=== PATIENT | female | born 1995 | race Hispanic/Latino ===

== ENCOUNTER 2020-12-24 12:57 | Emergency (ER) | payer OTHER, SELFPAY ==
[2020-12-24 14:11] LABS: Absolute Lymphocytes (CBC) 2.1 K/uL (0.7-4.9); Basophils % 0.6 % (0-1.3); Hematocrit 39.3 % (36.0-45.0); Lymphocytes % 22.7 % (15.3-44.8); MPV 8.7 fL (7.6-11.3); RBC Red Blood Cell Count 4.83 M/uL (3.86-4.86)
[2020-12-24] MEDS ORDERED: ACETAMINOPHEN 500 MG TAB ONE (14:17)
[2020-12-24 14:47] LABS: BUN Blood Urea Nitrogen 6 mg/dL (7-18); Bicarbonate 24 mmol/L (21-32); Glucose Level 76 mg/dL (74-106); HCG, Quantitative 32775 mIU/mL (1-3); Potassium 3.6 mmol/L (3.5-5.1); Sodium Level 140 mmol/L (136-145)
--- NOTE | 2020-12-24 14:49 | RAD REPORT ---
EXAM DESCRIPTION: RAD - Wrist Left 3 View - 12/24/2020 2:24 pm CLINICAL HISTORY: PAIN Pain COMPARISON: No comparisons FINDINGS: No fracture or dislocation seen. No foreign body or other soft tissue abnormality. IMPRESSION: Negative examination.
--- NOTE | 2020-12-24 14:50 | RAD REPORT ---
EXAM DESCRIPTION: RAD - Elbow Left 3 View - 12/24/2020 2:24 pm CLINICAL HISTORY: PAIN Trauma, pain COMPARISON: No comparisons FINDINGS: No acute fracture seen. No dislocation.
--- NOTE | 2020-12-24 15:29 | RAD REPORT ---
EXAM DESCRIPTION: US - OB Limited - 12/24/2020 3:04 pm CLINICAL HISTORY: vaginal bleeding after fall down stairs age. COMPARISON: No comparisons FINDINGS: A limited obstetrical ultrasound for trauma purposes was requested and performed. No evidence of placental abruption. Amniotic fluid volume is qualitatively normal. Single variable li ve gestation is identified with a rate of 152 BPM. Estimated gestational age is 15 weeks 0 days.
[2020-12-24 17:08] LABS: Urine Bacteria 20-50 /HPF (<20); Urine RBC <5 /HPF (NONE SEEN)
--- NOTE | 2020-12-24 17:27 | ER ---
Nurse's Notes [facility] Name: Charity Lo Age: 25 yrs Sex: Female : 1995 Arrival Date: 12/24/2020 Time: 12:59 Bed 30 Private MD: Diagnosis: Fall (on) (from) other stairs and steps;Pain in left elbow;Pain in left wrist;Threatened ;Low back pain Presentation: 12/24 13:08 Chief complaint: Patient states: fell from 3 steps while carrying 12 month old em daughter, reports hurting abdomen that radiates into low back, reports being 14 weeks , also report left elbow pain, also reports small vaginal bleeding. Coronavirus screen: Client denies travel out of the [place] in the last 14 days. Ebola Screen: Patient negative for fever greater than or equal to 101.5 degrees Fahrenheit, and additional compatible Ebola Virus Disease symptoms Patient denies exposure to infectious person. Patient denies travel to an Ebola-affected area in the 21 days before illness onset. No symptoms or risks identified at this time. Initial Sepsis Screen: Does the patient meet any 2 criteria? No. Patient's initial sepsis screen is negative. Does the patient have a suspected source of infection? No. Patient's initial sepsis screen is negative. Risk Assessment: Do you want to hurt yourself or someone else? Patient reports no desire to harm self or others. Onset of symptoms was December 24, 2020. 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 - Social history:: Smoking status: Patient denies any tobacco usage or history of. Screenin:08 Abuse screen: Denies threats or abuse. Denies injuries from another. Nutritional iw screening: No deficits noted. Tuberculosis screening: No symptoms or risk factors identified. Fall Risk None identified. Assessment: 15:00 General: Appears in no apparent distress. Behavior is calm, cooperative. Pain: iw Complains of pain in left lower quadrant. Neuro: Level of Consciousness is awake, alert, obeys commands, Oriented to person, place, time, situation, Moves all extremities. Full function. Cardiovascular: Patient's skin is warm and dry. Respiratory: Respiratory effort is even, unlabored, Respiratory pattern is regular. Derm: Skin is intact, is healthy with good turgor. Musculoskeletal: Range of motion: intact in all extremities. 16:08 Reassessment: Patient appears in no apparent distress at this time. Patient and/or iw family updated on plan of care and expected duration. Pain level reassessed. Patient is alert, oriented x 3, equal unlabored respirations, skin warm/dry/pink. Vital Signs: 13:08 BP 100 / 65; Pulse 82; Resp 18; Temp 97.8; Pulse Ox 100% on R/A; Weight 58.97 kg; em Height 5 ft. 2 in. (158 cm); Pain 8/10; 13:08 Body Mass Index 23.62 (58.97 kg, 158 cm) em ED Course: 12:59 Patient arrived in ED. ag5 13:11 Triage completed. em 13:12 Arm band placed on. em 13:18 Jessica Piña, RN is Primary Nurse. iw 13:26 Lane Palacio PA is PHCP. cp 13:26 Catalino Redd MD is Attending Physician. cp 13:59 No provider procedures requiring assistance completed. Initial lab(s) drawn, by me, ca1 sent to lab. Inserted saline lock: 20 gauge in right antecubital area, using aseptic technique. Blood collected. 14:24 XRAY Elbow LEFT 3 view In Process Unspecified. EDMS 14:24 XRAY Wrist LEFT 3 view In Process Unspecified. EDMS 15:00 Patient has correct armband on for positive identification. iw 15:04 OB Limited In Process Unspecified. EDMS 16:08 Urine Microscopic Only Sent. iw 16:42 Velcro wrist splint applied to left wrist. Sling applied to left arm. ca1 17:50 IV discontinued, intact, bleeding controlled, No redness/swelling at site. Pressure iw dressing applied. Administered Medications: 14:18 Drug: Tylenol 1000 mg Route: PO; ca1 Outcome: 17:26 Discharge ordered by . cp 17:50 Discharged to home ambulatory. iw 17:50 Condition: good 17:50 Discharge instructions given to patient, Instructed on discharge instructions, follow up and referral plans. Demonstrated understanding of instructions, follow-up care. 17:55 Patient left the ED. iw Signatures: Dispatcher [employer] Riccardo Haley RN RN Jessica Escamilla RN RN Lane Perez PA PA cp Acob, Cheryl, RN RN Yoselin Tenorio ag5
--- NOTE | 2020-12-24 17:27 | EDPHYS ---
Physician Documentation [facility] Name: Charity Lo Age: 25 yrs Sex: Female : 1995 Arrival Date: 12/24/2020 Time: 12:59 Bed 30 Private MD: ED Physician Catalino Redd HPI: 12/24 13:45 This 25 yrs old Female presents to ER via Ambulatory with complaints of Fall cp Injury. 13:45 Details of fall: The patient fell from a height, down approximately 3 stairs, and cp struck a concrete surface. Associated injuries: The patient sustained injury to the low back, pain, injury to the abdomen, specifically the left lower quadrant, tenderness, left elbow and left wrist. 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 - Social history:: Smoking status: Patient denies any tobacco usage or history of. ROS: 13:50 Constitutional: Negative for fever, poor PO intake. cp 13:50 Eyes: Negative for injury, pain, redness, and discharge. cp 13:50 Neck: Negative for pain with movement, pain at rest, stiffness. 13:50 Cardiovascular: Negative for chest pain, palpitations. 13:50 Respiratory: Negative for cough, shortness of breath, wheezing. 13:50 Abdomen/GI: Positive for abdominal pain, of the left lower quadrant, Negative for nausea, vomiting, and diarrhea, constipation. 13:50 Back: Positive for pain at rest, of the low back area. 13:50 : Positive for vaginal bleeding, Negative for urinary symptoms. 13:50 Neuro: Negative for altered mental status, dizziness, headache, loss of consciousness, syncope, weakness. 13:50 All other systems are negative. Exam: 16:00 Constitutional: The patient appears in no acute distress, alert, awake, comfortable, cp non-toxic, well developed, well nourished. 16:00 Head/Face: Normocephalic, atraumatic. cp 16:00 Eyes: Periorbital structures: appear normal, Conjunctiva: normal, no exudate, no injection, Sclera: no appreciated abnormality, Lids and lashes: appear normal, bilaterally. 16:00 ENT: External ear(s): are unremarkable, Nose: is normal, Posterior pharynx: Airway: no evidence of obstruction, patent. 16:00 Neck: C-spine: vertebral tenderness, is not appreciated, crepitus, is not appreciated, ROM/movement: is normal, is supple, without pain, no range of motions limitations. 16:00 Chest/axilla: Inspection: normal, Palpation: is normal, no crepitus, no tenderness. 16:00 Cardiovascular: Rate: normal, Rhythm: regular. 16:00 Respiratory: the patient does not display signs of respiratory distress, Respirations: normal, no use of accessory muscles, no retractions, no splinting, labored breathing, is not present, Breath sounds: are clear throughout, no decreased breath sounds. 16:00 Abdomen/GI: Inspection: abdomen appears normal, Bowel sounds: active, all quadrants, Palpation: soft, in the left lower quadrant, rebound tenderness, is not appreciated, involuntary guarding, is not appreciated. 16:00 Back: pain, that is mild, of the low back area, ROM is normal. 16:00 Musculoskeletal/extremity: Extremities: grossly normal except: noted in the left elbow and left wrist: pain, tenderness, There is no evidence of decreased ROM, deformity, ROM: full passive range of motion, in the left elbow and left wrist, Pulses: noted to be 2+ in the left radial artery, Sensation intact. 16:00 Skin: no rash present. Vital Signs: 13:08 BP 100 / 65; Pulse 82; Resp 18; Temp 97.8; Pulse Ox 100% on R/A; Weight 58.97 kg; em Height 5 ft. 2 in. (158 cm); Pain 8/10; 13:08 Body Mass Index 23.62 (58.97 kg, 158 cm) em Procedures: 17:00 Splinting: Splint applied to left elbow and left wrist using sling, wrist splint, cp applied by nurse. Examined by me, post splint application: neurovascular intact, Patient tolerated well. MDM: 13:30 Patient medically screened. cp 17:25 Data reviewed: vital signs, nurses notes, lab test result(s), radiologic studies, plain cp films, ultrasound. 17:25 Counseling: I had a detailed discussion with the patient and/or guardian regarding: the cp historical points, exam findings, and any diagnostic results supporting the discharge/admit diagnosis, lab results, radiology results, to return to the emergency department if symptoms worsen or persist or if there are any questions or concerns that arise at home. Response to treatment: the patient's symptoms have mildly improved after treatment, and as a result, I will discharge patient. 17:25 ED course: VSS. Discussed results of US showing viable with estimated cp gestational age 15 weeks. Will discharge to home for continued monitoring. 12/24 13:43 Order name: Quantitative Hcg; Complete Time: 15:37 12/24 15:37 Interpretation: HCGQ 03490; Reviewed. 12/24 13:43 Order name: Abo/rh Typing; Complete Time: 15:37 12/24 15:38 Interpretation: Reviewed. 12/24 13:43 Order name: Basic Metabolic Panel; Complete Time: 15:37 12/24 15:37 Interpretation: Normal except: BUN 6. 12/24 13:43 Order name: CBC with Diff; Complete Time: 15:37 12/24 13:43 Order name: Urine Microscopic Only; Complete Time: 17:14 12/24 17:14 Interpretation: Normal except: UBACT 20-50; SQEPI 5-10. 12/24 16:29 Order name: Urine Dipstick--Ancillary (enter results) 12/24 13:43 Order name: XRAY Elbow LEFT 3 view; Complete Time: 15:37 12/24 15:37 Interpretation: Report reviewed. 12/24 13:43 Order name: XRAY Wrist LEFT 3 view; Complete Time: 15:37 12/24 15:38 Interpretation: Report reviewed. 12/24 13:43 Order name: Urine Test (obtain specimen); Complete Time: 16:08 12/24 13:59 Order name: OB Limited; Complete Time: 15:37 EDTN 12/24 16:29 Order name: Urine --Ancillary (enter results) 12/24 17:09 Order name: Urine Culture [facility] 12/24 13:43 Order name: IV Saline Lock; Complete Time: 14:00 12/24 13:43 Order name: Labs collected and sent; Complete Time: 14:00 12/24 13:43 Order name: NPO; Complete Time: 14:00 12/24 13:43 Order name: Urine Dipstick-Ancillary (obtain specimen); Complete Time: 16:08 cp 12/24 16:27 Order name: Wrist Splint: left; Complete Time: 16:42 cp 12/24 16:27 Order name: Sling; Complete Time: 16:42 cp Administered Medications: 14:18 Drug: Tylenol 1000 mg Route: PO; ca1 Disposition: 18:24 Co-signature as Attending Physician, Catalino Redd MD. rn Disposition: 12/24/20 17:26 Discharged to Home. Impression: Fall (on) (from) other stairs and steps, Pain in left elbow, Pain in left wrist, Threatened , Low back pain. - Condition is Stable. - Discharge Instructions: Back Pain, Adult, Threatened Miscarriage, Vaginal Bleeding During , Second Trimester, Wrist Pain, Elbow Contusion, Pelvic Rest. - Medication Reconciliation Form, Thank You Letter, Antibiotic Education, Prescription Opioid Use form. - Follow up: Private Physician; When: 2 - 3 days; Reason: Recheck today's complaints. - Problem is new. - Symptoms have improved. - Notes: May take OTC tylenol for pain Signatures: Dispatcher [employer] EDTN Riccardo Mccann RN RN em Jessica Piña RN RN iw Catalino Redd MD MD rn Page, Corey, PA PA cp Acob, Cheryl RN RN ca1 Corrections: (The following items were deleted from the chart) 13:59 13:44 OB Complete+US.RAD.BRZ ordered. [facility] EDTN 17:55 17:26 12/24/2020 17:26 Discharged to Home. Impression: Fall (on) (from) other stairs iw and steps; Pain in left elbow; Pain in left wrist; Threatened ; Low back pain. Condition is Stable. Forms are Medication Reconciliation Form, Thank You Letter, Antibiotic Education, Prescription Opioid Use. Follow up: Private Physician; When: 2 - 3 days; Reason: Recheck today's complaints. Problem is new. Symptoms have improved. cp
[2020-12-24 17:35] LABS: Urine Blood NEGATIVE (NEG); Urine Glucose NEGATIVE (NEG); Urine Protein NEGATIVE (NEG)
[2020-12-24 17:59] VITALS: BP 100/65; TEMP 97.8; O2SAT 100
== END 2020-12-24 17:55 | disposition home or self-care (01) ==
LOC: ER 12:57
DX: O20.0 Threatened abortion (principal); Z3A.14 14 weeks gestation of pregnancy; W10.9XXA Fall (on) (from) unspecified stairs and steps, initial encounter; Y93.89 Activity, other specified; Y92.9 Unspecified place or not applicable
CPT/HCPCS: 36415; 76815; 80048; 81003; 81015; 81025; 84702; 85025; 86900; 86901; 87086; 87088; 99284

== ENCOUNTER 2022-11-22 13:06 | Emergency (ER) | payer SELFPAY ==
[2022-11-22 13:59] LABS: Absolute Lymphocytes (CBC) 2.2 K/uL (0.7-4.9); Hematocrit 38.4 % (36.0-45.0); Lymphocytes % 22.8 % (15.3-44.8); MCV 76.2 fL (80-100); MPV 8.4 fL (7.6-11.3); RBC Red Blood Cell Count 5.05 M/uL (3.86-4.86)
[2022-11-22 14:19] LABS: Potassium 3.5 mmol/L (3.5-5.1); Troponin High Sensitivity 3.9 pg/mL (<58.9)
[2022-11-22 14:30] LABS: SARS-COV-2 RT PCR NEGATIVE (NEGATIVE)
--- NOTE | 2022-11-22 15:12 | RAD REPORT ---
EXAM DESCRIPTION: Jakub Single View11/22/2022 2:08 pm CLINICAL HISTORY: Chest pain COMPARISON: none FINDINGS: The lungs appear clear of acute infiltrate. The heart is normal size IMPRESSION: No acute abnormalities displayed
--- NOTE | 2022-11-22 15:45 | EDPHYS ---
Physician Documentation [facility] Name: Charity Lo Age: 27 yrs Sex: Female : 1995 Arrival Date: 11/22/2022 Time: 13:10 Bed 13 Private MD: ED Physician Lane Turner HPI: 11/22 14:50 This 27 yrs old Female presents to ER via Ambulatory with complaints of Chest kb Pain, Back Pain. 14:50 The patient has not recently seen a physician. kb 14:50 The patient or guardian reports chest pain that is located primarily in the anterior kb chest wall, left. The pain radiates to the left arm. Associated signs and symptoms: Pertinent positives: cough, headache, nausea, vomiting. The chest pain is described as aching. Duration: The patient or guardian reports a single episode. Modifying factors: The symptoms are alleviated by nothing. the symptoms are aggravated by nothing. Severity of pain: At its worst the pain was mild moderate in the emergency department the pain is unchanged. The patient has not experienced similar symptoms in the past. Pt reports chest pain that radiates to left arm, cough, nausea and vomiting and shortness of breath that started yesterday. Denies fever and congestion. . Historical: - Allergies: 13:31 PENICILLINS; ap3 - Home Meds: 13:31 None [Active]; ap3 - PMHx: 13:31 None; ap3 - Immunization history:: Client reports receiving the 2nd dose of the Covid vaccine. - Social history:: Smoking status: Patient denies any tobacco usage or history of. ROS: 14:46 Constitutional: Negative for fever, chills, and weight loss. kb 14:46 Cardiovascular: Positive for chest pain. 14:46 Respiratory: Positive for cough, shortness of breath. 14:46 Abdomen/GI: Positive for nausea and vomiting, Negative for abdominal pain. 14:46 Neuro: Positive for headache. 14:46 All other systems are negative. Exam: 13:46 Constitutional: This is a well developed, well nourished patient who is awake, alert, kb and in no acute distress. Head/Face: Normocephalic, atraumatic. ENT: Moist Mucous membranes Cardiovascular: Regular rate and rhythm with a normal S1 and S2. No gallops, murmurs, or rubs. No pulse deficits. Respiratory: Respirations even and unlabored. No increased work of breathing. Talking in full sentences Abdomen/GI: Soft, non-tender. No distention Skin: Warm, dry with normal turgor. Normal color. MS/ Extremity: Pulses equal, no cyanosis. Neurovascular intact. Full, normal range of motion. Neuro: Awake and alert, GCS 15, oriented to person, place, time, and situation. Moves all extremities. Normal gait. Psych: Awake, alert, with orientation to person, place and time. Behavior, mood, and affect are within normal limits. 13:46 ECG was reviewed by the Attending Physician. Vital Signs: 13:30 BP 118 / 77; Pulse 90; Resp 17; Temp 98.1; Pulse Ox 97% ; ap3 14:19 BP 114 / 68; Pulse 79; Resp 16; Pulse Ox 99% on R/A; ko1 15:58 BP 121 / 74; Pulse 74; Pulse Ox 99% ; ko1 MDM: 13:29 Patient medically screened. kb 14:46 Data reviewed: vital signs, nurses notes. Data interpreted: Pulse oximetry: on room air kb is 99 %. Interpretation: normal. 15:48 Differential diagnosis: coronary artery disease chest wall pain, pleurisy, pulmonary kb embolus, URI, flu. Counseling: I had a detailed discussion with the patient and/or guardian regarding: the historical points, exam findings, and any diagnostic results supporting the discharge/admit diagnosis, lab results, radiology results, the need for outpatient follow up, a family practitioner, to return to the emergency department if symptoms worsen or persist or if there are any questions or concerns that arise at home. 16:13 ED course: Consideration of hospitalization: Hospitalization considered, but pt is kb healthy with no comorbidities. HEART score 0; Independent interpretation of the following tests in the emergency department: EKG (NSR); I considered the following discharge prescriptions or medication management in the emergency department: pain medication and antitussives considered, pt will take OTC medication for symptoms; Diagnostic test considered but not performed: CT Chest PE considered due to chest pain and shortness of breath, pt's d-dimer was normal and PERC negative; History obtained from: pt;. 11/22 13:33 Order name: Basic Metabolic Panel; Complete Time: 14:41 kb 11/22 13:33 Order name: CBC with Diff; Complete Time: 14:05 kb 11/22 13:33 Order name: D-Dimer; Complete Time: 14:17 kb 11/22 13:33 Order name: Troponin HS; Complete Time: 14:41 kb 11/22 13:33 Order name: XRAY Chest (1 view); Complete Time: 15:14 kb 11/22 13:33 Order name: COVID-19/FLU A+B; Complete Time: 14:41 kb 11/22 13:33 Order name: EKG; Complete Time: 13:34 kb 11/22 13:33 Order name: Cardiac monitoring; Complete Time: 13:38 kb 11/22 13:33 Order name: EKG - Nurse/Tech; Complete Time: 13:42 kb 11/22 13:33 Order name: IV Saline Lock; Complete Time: 13:55 kb 11/22 13:33 Order name: Labs collected and sent; Complete Time: 13:55 kb 11/22 13:33 Order name: O2 Per Protocol; Complete Time: 13:38 kb 11/22 13:33 Order name: O2 Sat Monitoring; Complete Time: 13:38 kb EC:46 Rate is 77 beats/min. Rhythm is regular. QRS [place] is Normal. TN interval is normal at kb 140 msec. QRS interval is normal at 86 msec. QT interval is normal at 430 msec. Administered Medications: No medications were administered Disposition Summary: 11/22/22 15:44 Discharge Ordered Location: Home kb Condition: Stable kb Diagnosis - Chest pain, unspecified kb Followup: kb - With: Emergency Department - When: As needed - Reason: Worsening of condition Followup: kb - With: Private Physician - When: 2 - 3 days - Reason: Recheck today's complaints, Continuance of care, Re-evaluation by your physician Discharge Instructions: - Discharge Summary Sheet kb - Nonspecific Chest Pain, Adult, [id number] kb - Viral Respiratory Infection, [id number] kb Forms: - Medication Reconciliation Form kb - Thank You Letter kb - Antibiotic Education kb - Prescription Opioid Use kb Signatures: Dispatcher [employer] Eulalia Wallace, TONEC Trudy Solitario, RN RN ap3
--- NOTE | 2022-11-22 15:45 | ER ---
Nurse's Notes [facility] Name: Charity Lo Age: 27 yrs Sex: Female : 1995 Arrival Date: 11/22/2022 Time: 13:10 Bed 13 Private MD: Diagnosis: Chest pain, unspecified Presentation: 11/22 13:30 Chief complaint: Patient states: she has chest pain that radiates to her left arm and ap3 back for one day. patient also has a cough, denies nausea. Coronavirus screen: Client presents with at least one sign or symptom that may indicate coronavirus-19. Ebola Screen: No symptoms or risks identified at this time. Initial Sepsis Screen: Does the patient meet any 2 criteria? No. Patient's initial sepsis screen is negative. Does the patient have a suspected source of infection? No. Patient's initial sepsis screen is negative. Risk Assessment: Do you want to hurt yourself or someone else? Patient reports no desire to harm self or others. Onset of symptoms was November 21, 2022. 13:30 Method Of Arrival: Ambulatory ap3 13:30 Acuity: OLIVIA 3 ap3 Triage Assessment: 13:31 General: Appears uncomfortable, Behavior is calm, cooperative. Pain: Complains of pain ap3 in chest Pain radiates to back and left arm Pain began gradually, 1 day ago. 13:32 Neuro: Level of Consciousness is awake, alert, obeys commands, Oriented to person, ap3 place, time, Moves all extremities. Gait is steady. Cardiovascular: Reports chest pain. Respiratory: Reports cough that is Airway is patent Respiratory effort is even, unlabored, Respiratory pattern is regular, symmetrical. Historical: - Allergies: 13:31 PENICILLINS; ap3 - Home Meds: 13:31 None [Active]; ap3 - PMHx: 13:31 None; ap3 - Immunization history:: Client reports receiving the 2nd dose of the Covid vaccine. - Social history:: Smoking status: Patient denies any tobacco usage or history of. Screenin:32 Abuse screen: Denies threats or abuse. Nutritional screening: No deficits noted. ap3 Tuberculosis screening: No symptoms or risk factors identified. 14:19 [facility] ED Fall Risk Assessment (Adult) History of falling in the last 3 months, ko1 including since admission No falls in past 3 months (0 pts) Confusion or Disorientation No (0 pts) Intoxicated or Sedated No (0 pts) Impaired Gait No (0 pts) Mobility Assist Device Used No (0 pt) Altered Elimination No (0 pt) Score/Fall Risk Level 0 - 2 = Low Risk Oriented to surroundings, Maintained a safe environment, Educated pt \T\ family on fall prevention, incl call for assistance when getting out of bed, Assessed \T\ reinforced patient's understanding of fall precautions, Provided non-skid footwear, Hourly rounding (assess needs \T\ fall precautionary measures) done, Used ambulatory aids as needed (educated on \T\ assisted with), Used gait belt as appropriate. Assessment: 13:50 General: Appears in no apparent distress. comfortable, Behavior is calm, cooperative, ko1 appropriate for age. Pain: Denies pain. Neuro: No deficits noted. Cardiovascular: No deficits noted. Respiratory: Reports cough that is dry, hacking. GI: No deficits noted. : No deficits noted. EENT: No deficits noted. Derm: No deficits noted. Musculoskeletal: No deficits noted. Vital Signs: 13:30 BP 118 / 77; Pulse 90; Resp 17; Temp 98.1; Pulse Ox 97% ; ap3 14:19 BP 114 / 68; Pulse 79; Resp 16; Pulse Ox 99% on R/A; ko1 15:58 BP 121 / 74; Pulse 74; Pulse Ox 99% ; ko1 ED Course: 13:10 Patient arrived in ED. rg4 13:26 Eulalia Anderson FNP-C [facility]. kb 13:26 Lane Turner MD is Attending Physician. kb 13:31 Triage completed. ap3 13:32 Arm band placed on right wrist. ap3 13:32 Patient maintains SpO2 saturation greater than 95% on room air. ap3 13:37 Josette Mcdonnell, PARESH is Primary Nurse. ko1 13:50 Inserted saline lock: 20 gauge in right antecubital area, using aseptic technique. ko1 Blood collected. 13:55 COVID-19/FLU A+B Sent. ko1 13:55 Basic Metabolic Panel Sent. ko1 13:55 CBC with Diff Sent. ko1 13:56 D-Dimer Sent. ko1 13:56 Troponin HS Sent. ko1 14:09 XRAY Chest (1 view) In Process Unspecified. EDMS 14:19 Patient has correct armband on for positive identification. Placed in gown. Bed in low ko1 position. Call light in reach. Side rails up X 1. Client placed on continuous cardiac and pulse oximetry monitoring. NIBP monitoring applied. knuckle bender on. Door closed. Noise minimized. Lights dimmed. Warm blanket given. 14:19 No provider procedures requiring assistance completed. ko1 15:58 IV discontinued, intact, bleeding controlled, No redness/swelling at site. Pressure ko1 dressing applied. Administered Medications: No medications were administered Medication: 15:58 VIS not applicable for this client. ko1 Outcome: 15:44 Discharge ordered by . bette 15:58 Discharged to home ambulatory. ko1 15:58 Condition: good 15:58 Discharge instructions given to patient, Instructed on discharge instructions, follow up and referral plans. Demonstrated understanding of instructions, follow-up care. 16:03 Patient left the ED. ko1 Signatures: Dispatcher [employer] EDMI Eulalia Anderson, PATHOLOGY SECRETARY/TRANSCRIPTIONIST-C PATHOLOGY SECRETARY/TRANSCRIPTIONIST-Jacqueline Manzo rg4 Trudy Trejo, RN RN ap3 Josette Mcdonnell, PARESH RN ko1
[2022-11-22 16:13] VITALS: TEMP 98.1
[2022-11-22 16:18] VITALS: O2SAT 99
[2022-11-22 16:24] VITALS: BP 121/74
--- NOTE | 2022-11-23 15:23 | EKG ---
Test Date: 2022-11-22 Test Time: 13:36:55 Camera Tuning Engineer: LAVELLE MEASUREMENT RESULTS: Intervals: Rate: 77 LA: 140 QRSD: 86 QT: 380 QTc: 430 [place]: P: 71 LA: 140 QRS: 70 T: 50 INTERPRETIVE STATEMENTS: Normal sinus rhythm Normal ECG Electronically Signed On 11-23-22 15:21:35 BUILDING TECH by Vance Farrell
== END 2022-11-22 16:03 | disposition home or self-care (01) ==
LOC: ER 13:06
DX: R07.89 Other chest pain (principal); Z20.822 Contact with and (suspected) exposure to COVID-19; Z88.0 Allergy status to penicillin
CPT/HCPCS: 0240U; 36415; 71045; 80048; 84484; 85025; 85379; 93005; 99284

== ENCOUNTER 2023-09-16 15:47 | Emergency (ER) | payer SELFPAY ==
--- OUTSIDE RECORDS SUMMARY | 2023-09-16 15:50 | XMS REPORT | Continuity of Care Document ---
:1995 Author Organization [facility] t Address [address] [facility] [address] [place] [address] Care Team Providers Name Role Phone PCP, PATIENT DOES NOT HAVE A Primary Care Physician Unavaila TIERNEY Richmond Attending Clinician Unavailable Tierney Crawford Attending Clinician [phone] Doctor Unassigned, [place] Attending Clinician Unavailable Jose Renteria MD Attending Clinician Joanne Linares MD Attending Clinician JOSE RENTERIA Attending Clinician Unavailable Joanne Linares MD Admitting Clinician Payers Payer Name Policy Type Policy Number Effective Date Expiration Date [facility] [id number] 2021 MOM [employer]IP [employer] LOW 00:00:00 FPL Problems Condition Condition Condition Status Onset Resolution Last Treating Co mments Source Name Details Category Date Date Treatment Clinician Date Routine Routine Disease Active Univers 8-11 [place] [address] [place] [address] Disease Active Univers (spontaneo (spontaneo 7-24 [place] [facility] Single Single Disease Active Univers live live 7-24 it y of 00:00: [address] Anemia, Anemia, Disease Active Univers 7-24 it y of 00:00: [address] 39 weeks 39 weeks Disease Active Unive rs gestation gestation 7-22 ity of of of 00:00: [place] 00 [facility] GBS (group GBS (group Disease Active U nivers B B 06-09 ity of streptococ streptococ 00:00: [facility] cus) UTI cus) UTI 00 Medica l complicati complicati Br anch ng ng Encounter Encounter Disease Active Uni vers for for 722 ity of induction [place] labor of labor 00 [facility] Obesity Obesity Disease Active Univers (BMI (BMI 7- ity of 30-39.9) 30-39.9) 00:00: [place] 00 [facility] Allergies, Adverse Reactions, Alerts Allergy Allergy Status Severity Reaction(s) Onset Inactive Treating Comm ents Source Name Type Date Date Clinician PENICILL DRUG Active Rash Univers IN INGREDI 06-09 ity of 00:00: [place] 00 Medical Branch Penicill Propensi Active Rash Univer s in ty to 06-09 ity of adverse 00:00: [place] reaction 00 Medical s Branch Penicill Propensi Active Itching Fainting, Un ojse ins ty to 708 headache ity of adverse 00:00: [place] reaction 00 Medical s Branch PENICILL Drug Active ITCHING Univers INS Class 7-08 ity of 00:00: [place] 00 Medical Branch Social History Social Habit Start Date Stop Date Quantity Comments Source Exposure to Not sure [facility] SARS-CoV-2 (event) [facility] Tobacco use and 2021-06-29 2021-06-29 Never used [facility] exposure 00:00:00 00:00:00 Medical Branch Sex [birth year] [facility] 00:00:00 00:00:00 Medical Branch Smoking Status Start Date Stop Date Source Never smoker [facility] Unknown if ever smoked [facility] Medications Ordered Filled Start Stop Current Ordering Indication Dosage Frequency Signature Comments Components Source Medication Medication Date Date Medication? Clinician (SIG) Name Name Yes [id number] 1{tbl} Take 1 U nivers vitamin 7-24 tablet by ity of w/FA tablet 00:00: mouth [place] 00 daily. Medical Branch docusate Yes [id number] 240mg Take 1 Un jose calcium 240 7-24 capsule by it y of mg capsule 00:00: mouth [place] 00 daily as Medical needed for Branch Constipati on. ferrous Yes [id number] 325mg Take 1 Uni vers sulfate 325 7-24 tablet by ity of mg (65 mg 00:00: mouth 2 [place] iron) 00 (two) Medical tablet times Branch daily. ibuprofen Yes [id number] 600mg Take 1 U nivers 600 mg 7-24 tablet by ity of tablet 00:00: mouth [place] 00 every 6 Medical (six) Branch hours as needed (Pain). Take with food or milk. Yes [id number] 1{tbl} Take 1 U nivers vitamin 7-24 tablet by ity of w/FA tablet 00:00: mouth [place] 00 daily. Medical Branch docusate Yes [id number] 240mg Take 1 Un jose calcium 240 7-24 capsule by it y of mg capsule 00:00: mouth [place] 00 daily as Medical needed for Branch Constipati on. ferrous Yes [id number] 325mg Take 1 Uni vers sulfate 325 7-24 tablet by ity of mg (65 mg 00:00: mouth 2 [place] iron) 00 (two) Medical tablet times Branch daily. ibuprofen Yes [id number] 600mg Take 1 U nivers 600 mg 7-24 tablet by ity of tablet 00:00: mouth [place] 00 every 6 Medical (six) Branch hours as needed (Pain). Take with food or milk. Yes 1{tbl} Take 1 Unive rs vit 05-27 tablet by ity of calc,iron,f 08:49: mouth [place] olic 52 daily. Medical ( Branch VITAMIN ORAL) acetaminoph 2020- No 1000mg 1,000 mg, Univers en 05-27 Oral, ity of (TYLENOL) 05:45: 04:46 ONCE, 1 [place] tablet 00 :00 dose, Fri Medical 1,000 mg 05/27/21 at Branch 0045, Routine Vital Signs Vital Name Observation Time Observation Value Comments Source Systolic blood 2021-06-29 18:47:00 104 mm[Hg] Univer sity of pressure [facility] Diastolic blood 2021-06-29 18:47:00 77 mm[Hg] Unive rsity of pressure [place] [facility] [place] Heart rate 2021-06-29 18:47:00 77 /min Universi ty of [place] [facility] [place] Body temperature 2021-06-29 18:47:00 37.17 Cyndie Univ ersity of [place] [facility] Respiratory rate 2021-06-29 18:47:00 16 /min Univ ersity of [facility] Body height 2021-06-29 18:47:00 158 cm [facility]i ty [facility] [place] [facility] Body weight 2021-06-29 18:47:00 67.756 kg [facility] [place] [facility] BMI 2021-06-29 18:47:00 27.14 kg/m2 Universi ty of [facility] Branch Systolic blood 2021-05-27 06:44:00 99 mm[Hg] Univer sity of pressure [facility] Diastolic blood 2021-05-27 06:44:00 60 mm[Hg] Unive rsity of [facility] Heart rate 2021-05-27 06:44:00 89 /min Universi ty of [place] [facility] [place] Body temperature 2021-05-27 06:44:00 37 Cyndie [facility] ersity of [place] [facility] Respiratory rate 2021-05-27 06:44:00 18 /min Univ ersity of [facility] Body height 2021-05-27 06:44:00 154.9 cm Universi ty of [place] [facility] [place] Body weight 2021-05-27 06:44:00 71.668 kg Universi ty [facility] [place] [facility] [place] BMI 2021-05-27 06:44:00 29.85 kg/m2 Universi ty of [place] [facility] [place] Oxygen saturation in 2021-05-27 06:44:00 100 /min [facility] blood by [place] [facility] Pulse oximetry Branch Procedures Procedure Date / Time Performed Performing Clinician [facility] CONSENT/REFUSAL FOR 2021-06-29 18:23:57 Doctor Unassigned, No [facility] DIAGNOSIS AND Name Medical Branch TREATMENT ASSIGNMENT OF BENEFITS 2021-06-29 18:23:39 Doctor Unassigned, No [facility] Name Medical Branch COMP. METABOLIC PANEL 2021-05-27 04:52:00 Jose Renteria [facility] ([id number]) [facility] CBC WITH DIFF 2021-05-27 04:52:00 Jose Renteria [facility] URINALYSIS 2021-05-27 04:48:00 Jose Renteria [facility] COVID-19 (ID NOW RAPID 2021-05-27 04:48:[address] [facility] TESTING) [facility] CONSENT/REFUSAL FOR 2021-05-27 02:49:09 Doctor Unassigned, No [facility] [place] DIAGNOSIS AND Name [facility] TREATMENT CONSENT/REFUSAL FOR 2021-05-27 02:48:57 Doctor Unassigned, No [facility] [place] DIAGNOSIS AND Name [facility] TREATMENT Encounters Start End Encounter Admission Attending Care Care Encounter Source Date/Time Date/Time Type Type Clinicians Facility Department ID 2021-07-27 2021-07-27 Outpatient Norma BHANDARI, [facility] [id number] Univers 14:00:00 14:00:00 TIERNEY johnson [facility] 2021-07-20 2021-07-20 Outpatient Norma BHANDARI, [facility] [id number] Univers 14:30:00 14:30:00 TIERNEY clark o [facility] 2021-06-29 2021-06-29 Outpatient Norma BHANDARI, [facility] [id number] Univers 13:15:00 14:41:16 TIERNEY hindsy o f [facility] 2021-06-29 2021-06-29 Routine Winnie, [facility] [id number] Univers 13:25:49 13:40:49 Tierney Huang TECHNICAL ARCHITECT [id number] ity of Visit [facility] [id number] Alejo as MATERNAL [id number] Med ical & CHILD [address] [place] [address] 2021-06-29 2021-06-29 Outpatient Norma BHANDARI, [facility] [id number] Univers 13:15:00 13:15:00 TIERNEY clark o f [facility] 2021-06-29 2021-06-29 Orders Doctor BENNETT [id number] Univers 00:00:00 00:00:00 Only Unassigned, MARY [id number] ity of [facility] [id number] [facility] [id number] [facility] 009 Branch 2021-06-09 2021-06-09 Emergency X [facility] ERT [id number] Univers 15:03:00 [facility] 2021-05-26 2021-05-27 Emergency [facility] [id number] Univers 22:20:00 03:35:00 Joanne Linares [id number] ity [facility] [id number] [facility] [id number] [facility] 083 Branch 2021-05-26 2021-05-26 Emergency X [facility] ERT [id number] Univers 22:20:00 22:20:00 [facility] Results Test Description Test Time Test Comments Results Result Comments Source COVID-19 (ID NOW RAPID TESTING) 2021-05-27 05:35:55 Test Item Value Reference Range Interpretation Comme nts SARS-CoV-2 Rapid ID NOW (test code Not Detected Not Detected = 87883-4) YAYO (test code = YAYO) ID NOW COVID-19 Assay is an isothermal nucleic acid amplification test intended for the qualitative detection of nucleic acid from SARS-CoV-2 viral RNA in nasopharyngeal (SUPERVISOR SAMPLE PREPARATION) specimens. It is used under Emergency Use Authorization (EUA) by FDA. The limit of detection (LOD) of the assay is 125 Genome Equivalents/mL. A positive result is indicative of the presence of SARS-CoV-2 RNA. ?Clinical correlation with patient history and other diagnostic information is necessary to determine patient infection status. A negative (Not Detected) result does not preclude SARS-CoV-2 infection. In patients with clinical symptoms and other tests that are consistent with SARS-CoV-2 infection, negative results should be treated as presumptive negative and a new specimen should be tested with alternative PCR molecular test. Invalid: Please collect a new specimen for repeat patient testing if clinically indicated. Lab Interpretation (test code = Normal 98020-4) [facility] ([id number][facility]2021-05-27 05:22:35 Test Item Value Reference Range Interpretation Comments NA (test code = 136 mmol/L 135-145 6567472558) K (test code = 4.0 mmol/L 3.5-5.0 8070924058) CL (test code = 110 mmol/L 98-108 H 1630813222) CO2 TOTAL (test code = 22 mmol/L 23-31 L 2611563188) AGAP (test code = 2-16 9473375822) BUN (test code = 12 mg/dL 7-23 6378201374) GLUCOSE (test code = 84 mg/dL 70-110 8362381418) CREATININE (test code = 0.45 mg/dL 0.50-1.04 L 2180982588) TOTAL BILI (test code = 0.3 mg/dL 0.1-1.7 3363871534) CALCIUM (test code = 9.0 mg/dL 8.6-10.6 4630622413) T PROTEIN (test code = 7.1 g/dL 6.3-8.2 0083045035) ALBUMIN (test code = 3.8 g/dL 3.5-5.0 1728228764) ALK PHOS (test code = 197 U/L 34-122 H 2599617046) ALTv (test code = 17 U/L 5-35 1742-6) AST(SGOT) (test code = 22 U/L 13-40 0735857014) eGFR (test code = mL/min/1.73m2 2156949063) YAYO (test code = YAYO) Association of Glomerular Filtration Rate (GFR) and Staging of Kidney Disease* + --+ --+ ------+| GFR (mL/min/1.73 m2) ?| With Kidney Damage ?| ?Without Kidney Damage+ --------+ --------+ +| ?>90 ?| ?Stage one ?| ? Normal ?+ ---+ ---+ -------+| ?60-89 ?| ?Stage two ?| ? Decreased GFR ? + --+ --+ ------+| ?30-59 ?| ?Stage three ?| ? Stage three ? + --+ --+ ------+| ?15-29 ?| ?Stage four ? | ? Stage four ?+ ---+ ---+ -------+| ?<15 (or dialysis) ? ?| ?Stage five ? | ? Stage five ?+ ---+ ---+ -------+ *Each stage assumes the associated GFR level has been in effect for at least three months. ?Stages 1 to 5, with or without kidney disease, indicate chronic kidney disease. Notes: Determination of stages one and two (with eGFR >59mL/min/1.73 m2) requires estimation of kidney damage for at least three months as defined by structural or functional abnormalities of the kidney, manifested by either:Pathological abnormalities or Markers of kidney damage (including abnormalities in the composition of the blood or urine or abnormalities in imaging tests). Lab Interpretation Abnormal (test code = 03903-7) [place] [facility] 05:12[facility]55 Test Item Value Reference Range Interpretation Comments APPEARANCE (test code = Clear Clear 3184589311) COLOR (test code = Yellow Yellow 3155561272) PH (test code = 4.8-8.0 4797543920) SP GRAVITY (test code = 1.003-1.030 7871122914) GLU U QUAL (test code = Normal Normal 8337224442) BLOOD (test code = Negative Negative 5283716290) KETONES (test code = Negative Negative 9151956585) PROTEIN (test code = Negative Negative 2887-8) UROBILIN (test code = Normal Normal 7009399582) BILIRUBIN (test code = Negative Negative 4173528780) NITRITE (test code = Negative Negative 6565903874) LEUK SOREN (test code = 75/uL Negative A 1499172115) RBC/HPF (test code = See_Comment [Autom ated message] 4522306183) The system [employer] generated this result transmitted ref erence range: 0 - 3 HP F. The reference range was not used to int erpret this result as normal/abnormal . WBC/HPF (test code = See_Comment [Autom ated message] 0422216736) The system [employer] generated this result transmitted ref erence range: 0 - 5 HP F. The reference range was not used to int erpret this result as normal/abnormal . BACTERIA (test code = Few Negative A 8553160397) MUCOUS (test code = Slight Negative LPF A 4105761083) AMORPHOUS (test code = Rare Rare HPF 0683387262) SQ EPITH (test code = HPF 4598316240) TRANS EPI (test code = <1 See_Comment [Aut omated message] 2656228035) The system whic h generated this result transmitted ref erence range: <=1 HPF. The reference range was not used to int erpret this result as normal/abnormal . Lab Interpretation (test Abnormal code = 24391-4) [facility] WITH [id number] 05:05:50 Test Item Value Reference Range Interpretation Comments WBC (test code = See_Comment H [Automated 6690-2) message] The sy stem which generated this result transmitted reference range : 4.30 - 11.10 10*3/?L. The reference range was not used to interpret this result as normal/abnormal . RBC (test code = See_Comment [Automated 789-8) message] The sy stem which generated this result transmitted reference range : 3.93 - 5.25 10*6/?L. The reference range was not used to interpret this result as normal/abnormal . HGB (test code = 8.7 g/dL 11.6-15.0 L 718-7) HCT (test code = 28.3 % 35.7-45.2 L 4544-3) MCV (test code = 71.6 fL 80.6-95.5 L 787-2) MCH (test code = 22.0 pg 25.9-32.8 L 785-6) MCHC (test code = 30.7 g/dL 31.6-35.1 L 786-4) RDW-SD (test code = 40.0 fL 39.0-49.9 89373-3) RDW-CV (test code = 15.6 % 12.0-15.5 H 788-0) PLT (test code = See_Comment [Automated 777-3) message] The sy stem which generated this result transmitted reference range : 166 - 358 10*3/ ?L. The reference r mayra was not used to interpret this result as normal/abnormal . MPV (test code = 10.2 fL 9.5-12.9 57131-6) NRBC/100 WBC (test See_Comment [Automat ed code = 0902505202) message] The system which generated this result transmitted reference range : 0.0 - 10.0 /100 WBCs. The refer ence range was not u sed to interpret th is result as normal/abnormal . NRBC x10^3 (test code See_Comment [Auto mated = 2368719523) message] The s ystem which generated this result transmitted reference range : 10*3/?L. The reference range was not used to interpret this result as normal/abnormal . GRAN MAT (NEUT) % 70.6 % (test code = 770-8) IMM GRAN % (test code 1.20 % = 7882083604) LYMPH % (test code = 20.0 % 736-9) MONO % (test code = 5.7 % 5905-5) EOS % (test code = 2.0 % 713-8) BASO % (test code = 0.5 % 706-2) GRAN MAT x10^3(ANC) 8.89 10*3/uL 1.88-7.09 H (test code = 9652548683) IMM GRAN x10^3 (test 0.15 10*3/uL 0.00-0.06 H code = 3460472301) LYMPH x10^3 (test code 2.52 10*3/uL 1.32-3.29 = 731-0) MONO x10^3 (test code 0.72 10*3/uL 0.33-0.92 = 742-7) EOS x10^3 (test code = 0.25 10*3/uL 0.03-0.39 711-2) BASO x10^3 (test code 0.06 10*3/uL 0.01-0.07 = 704-7) Lab Interpretation Abnormal (test code = 59225-4) [facility]"
[2023-09-16] MEDS ORDERED: ONDANSETRON 4 MG/2 ML VIAL ONE (16:18)
[2023-09-16] MEDS ORDERED: NA CHLORIDE 0.9% 1,000 ML ONE ×2 (16:19→19:01)
[2023-09-16 16:23] LABS: Absolute Lymphocytes (CBC) 2.4 K/uL (0.7-4.9); Hematocrit 36.2 % (36.0-45.0); Lymphocytes % 22.4 % (15.3-44.8); MCV 74.6 fL (80-100); MPV 8.1 fL (7.6-11.3); Platelets 319 thou/uL (152-406); RBC Red Blood Cell Count 4.85 M/uL (3.86-4.86)
[2023-09-16 16:38] LABS: Potassium 3.2 mEq/L (3.5-5.1)
[2023-09-16] MEDS ORDERED: KETOROLAC 30 MG/ML INJ ONE ×2 (16:55→18:42)
[2023-09-16] MEDS ORDERED: METOCLOPRAMIDE 10 MG/2mL INJ ONE (16:55)
[2023-09-16] MEDS ORDERED: MORPHINE 2 MG/ML SYR ONE (17:11)
--- NOTE | 2023-09-16 18:14 | RAD REPORT ---
EXAM DESCRIPTION: CT - Abdomen Pelvis Wo Contrast - 09/16/2023 5:53 pm CLINICAL HISTORY: Abdominal pain COMPARISON: None TECHNIQUE: Computed axial tomography of the abdomen and pelvis was obtained. IV and oral contrast we re not requested. All CT scans are performed using dose optimization technique as appropriate and may include automated exposure control or mA/KV adjustment according to patient size. FINDINGS: The evaluation of solid organs, vessels and bowel is limited secondary to the lack of con trast administration. 11 millimeter calculus right UPJ. Mild to moderate right hydronephrosis. Tiny bilateral renal calculi. Liver, spleen, pancreas and adrenals grossly normal The appendix is normal. There is no evidence of diverticulitis. No adnexal mass Small umbilical hernia IMPRESSION: 11 millimeter calculus right UPJ resulting in mild to moderate right hydronephrosis
[2023-09-16] MEDS ORDERED: MORPHINE 4 MG/ML SYR ONE (18:42)
--- NOTE | 2023-09-16 18:50 | EDPHYS ---
Physician Documentation [facility] Name: Charity Lo Age: 28 yrs Sex: Female : 1995 Arrival Date: 09/16/2023 Time: 15:47 Bed 11 Private MD: ED Physician Sudarshan Zafar HPI: 09/16 16:01 This 28 yrs old Female presents to ER via Ambulatory with complaints of Low ec2 Back Pain, Vomiting. 16:01 Patient arrives today due to concern for nausea vomiting with associated left back ec2 pain. Patient reports history of previous UTI in the past, reports no previous abdominal surgery, states that her symptoms started yesterday. Patient reports no cough or cold symptoms, no diarrhea symptoms. Patient denies any vaginal discharge.. 16:01 Reports her last menstrual cycle was 1 month ago.. 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 - Social history:: Smoking status: Patient denies any tobacco usage or history of. ROS: 16:01 Constitutional: as per hpi ec2 Exam: 16:01 Constitutional: GEN: NAD Head: atraumatic Eyes: EOMI Ears: External ears are ec2 normal. CV: regular rate LUNGS: no respiratory distress ABD: non-distended, soft, nontender, no guarding, nonrigid, left CVA tenderness palpation SKIN: no evidence of rashes MSK: no evidence of trauma NEURO: moves all extremities equally Vital Signs: 15:59 BP 131 / 79; Pulse 90; Resp 18; Temp 97.3; Pulse Ox 100% on R/A; Weight 68.95 kg; mb9 Height 5 ft. 1 in. ; 16:45 BP 135 / 70; Pulse 90; Resp 18; Pulse Ox 100% ; Pain 10/10; nj1 17:20 Pain 7/10; nj1 18:30 BP 106 / 68; Pulse 89; Resp 16; Pulse Ox 100% ; Pain 9/10; nj1 19:22 Pain 7/10; nj1 19:23 Pain 7/10; nj1 20:06 BP 118 / 84; Pulse 68; Resp 18; Pulse Ox 98% on R/A; kl 15:59 Body Mass Index 28.33 (68.95 kg, 156 cm) mb9 16:45 Pain Scale: Adult nj1 17:20 Pain Scale: Adult nj1 18:30 Pain Scale: Adult nj1 19:22 Pain Scale: Adult nj1 19:23 Pain Scale: Adult nj1 MDM: 15:51 Patient medically screened. ec2 16:01 Data reviewed: vital signs. ED course: Patient arrives today due to concern for left ec2 back pain as well as nausea and vomiting. Examination remarkable for reassuring abdominal examination with left CVA tenderness palpation. Will obtain lab work, treat the patient system with crystalloid as well as Zofran and obtain urine studies. Currently considered UTI/pyelonephritis, electrolyte disturbance, .. 18:24 ED course: CT abdomen pelvis shows 11 mm right UPJ stone with right-sided ec2 hydronephrosis. . 18:57 ED course: I discussed case with transfer center, discussed with [place] [id number] and they agree to send the patient for admission.. 09/16 16:00 Order name: CBC with Diff; Complete Time: 16:29 ec2 09/16 16:00 Order name: BMP; Complete Time: 16:39 ec2 09/16 16:56 Order name: Test, Serum; Complete Time: 17:39 ec2 09/16 16:41 Order name: CT Abd/Pelvis - Without Contrast; Complete Time: 18:23 ec2 Administered Medications: 16:10 Drug: NS 0.9% IV 1000 ml IV at 1 bolus Per protocol; 1000 mL bolus Route: IV; Rate: 1 nj1 bolus; Site: right antecubital; 16:10 Drug: Ondansetron IVP 4 mg IVP once; over 2 minutes Route: IVP; Site: right antecubital;nj1 16:45 Follow up: Response: No adverse reaction; Nausea unchanged nj 16:42 Drug: metoCLOPramide IVP 10 mg IVP once; over 1 to 2 minutes Route: IVP; Site: right nj1 antecubital; 17:10 Follow up: Response: No adverse reaction; Nausea is decreased nj1 16:44 Drug: Ketorolac IVP 15 mg IVP once Route: IVP; Site: right antecubital; nj1 17:10 Follow up: Response: No adverse reaction; Pain is unchanged, physician notified nj1 17:00 Drug: morphine IVP or IV 2 mg IVP once over 4 mins Route: IVP; Infused Over: 4 mins; nj1 Site: right antecubital; 17:20 Follow up: Pain 7/10 Adult; Response: No adverse reaction; Pain is decreased nj1 18:30 Drug: morphine IVP or IV 4 mg IVP once over 4 mins Route: IVP; Infused Over: 4 mins; nj1 Site: right antecubital; 19:23 Follow up: Pain 7/10 Adult; Response: No adverse reaction; Pain is decreased nj1 18:30 Drug: Ketorolac IVP 15 mg IVP once Route: IVP; Site: right antecubital; nj1 19:22 Follow up: Pain 7/10 Adult; Response: No adverse reaction; Pain is decreased nj1 18:49 Drug: NS 0.9% IV 1000 ml IV at 1 bolus Per protocol; 1000 mL bolus Route: IV; Rate: 1 hb bolus; Site: right antecubital; Disposition Summary: 09/16/23 18:49 Transfer Ordered Notes: Reason: Higher level of care ec2 Condition: Stable ec2 Problem: new ec2 Symptoms: have improved ec2 Transfer Location: [facility](09/16/23 18:57) ec2 Accepting Physician: Outside Facility(09/16/23 20:31) kl Diagnosis - Ureteral Stone ec2 Forms: - Medication Reconciliation Form ec2 - SBAR form ec2 Signatures: Dispatcher [employer] Yesy Anders RN RN kl Baxter, Heather, RN RN hb Breneman, Mary Beth RN RN Alicia Bowman RN RN nj1 Sudarshan Zafar MD MD ec2 Corrections: (The following items were deleted from the chart) 18:57 18:49 Outside Facility ec2 ec2 18:57 18:49 Other Acute Care Facility ec2 ec2 20:31 18:57 Outside Facility ec2 kl
--- NOTE | 2023-09-16 18:50 | ER ---
Nurse's Notes [facility] Name: Charity Lo Age: 28 yrs Sex: Female : 1995 Arrival Date: 09/16/2023 Time: 15:47 Bed 11 Private MD: Diagnosis: Ureteral Stone Presentation: 09/16 15:59 Chief complaint: Patient states: "I started having low back pain yesterday. Now I'm N/V mb9 and lightheaded." Pt denies stomach pain and burning with urination. Coronavirus screen: Vaccine status: Patient reports being unvaccinated. Ebola Screen: No symptoms or risks identified at this time. Initial Sepsis Screen: Does the patient meet any 2 criteria? No. Patient's initial sepsis screen is negative. Does the patient have a suspected source of infection? No. Patient's initial sepsis screen is negative. Risk Assessment: Do you want to hurt yourself or someone else? Patient reports no desire to harm self or others. Onset of symptoms was September 16, 2023. 15:59 Method Of Arrival: Ambulatory mb9 15:59 Acuity: OLIVIA 3 mb9 Triage Assessment: 16:01 General: Appears uncomfortable, Behavior is calm, cooperative, appropriate for age. mb9 Pain: Complains of pain in back. EENT: No signs and/or symptoms were reported regarding the EENT system. Neuro: Alvarado Agitation-Sedation Scale (RASS): 0 - Alert and Calm Level of Consciousness is awake, alert, obeys commands, Oriented to person, place, time, situation, Appropriate for age. Cardiovascular: Patient's skin is warm and dry. Respiratory: Airway is patent Respiratory effort is even, unlabored, Respiratory pattern is regular, symmetrical. GI: Pt is actively vomiting bile, clear fluid, Reports nausea, vomiting. : Denies burning with urination. Derm: Skin is pink, warm \\T\\ dry. Musculoskeletal: Range of motion: intact in all extremities. 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 - Social history:: Smoking status: Patient denies any tobacco usage or history of. Screenin:46 [facility] ED Fall Risk Assessment (Adult) Score/Fall Risk Level 0 - 2 = Low Risk nj1 Oriented to surroundings, Maintained a safe environment, Hourly rounding (assess needs \\T\\ fall precautionary measures) done. Abuse screen: Denies threats or abuse. Denies injuries from another. Nutritional screening: No deficits noted. Tuberculosis screening: No symptoms or risk factors identified. Assessment: 16:00 General: Appears in no apparent distress. uncomfortable, Behavior is calm, cooperative, nj1 appropriate for age. 16:00 Pain: Complains of pain in back Pain currently is 10 out of 10 on a pain scale. Neuro: nj1 Level of Consciousness is awake, alert, obeys commands, Oriented to person, place, time, situation. Cardiovascular: Patient's skin is warm and dry. Respiratory: Airway is patent Respiratory effort is even, unlabored. GI: Pt is actively vomiting Reports nausea, vomiting. : Denies Dysuria. 17:20 Reassessment: Patient appears in no apparent distress at this time. Patient and/or nj1 family updated on plan of care and expected duration. Pain level reassessed. Patient is alert, oriented x 3, equal unlabored respirations, skin warm/dry/pink. 17:20 Pain: Complains of pain in back Pain currently is 7 out of 10 on a pain scale. nj1 18:30 Reassessment: Patient appears in no apparent distress at this time. Patient and/or nj1 family updated on plan of care and expected duration. Pain level reassessed. Patient is alert, oriented x 3, equal unlabored respirations, skin warm/dry/pink. Vital Signs: 15:59 BP 131 / 79; Pulse 90; Resp 18; Temp 97.3; Pulse Ox 100% on R/A; Weight 68.95 kg; mb9 Height 5 ft. 1 in. ; 16:45 BP 135 / 70; Pulse 90; Resp 18; Pulse Ox 100% ; Pain 10/10; nj1 17:20 Pain 7/10; nj1 18:30 BP 106 / 68; Pulse 89; Resp 16; Pulse Ox 100% ; Pain 9/10; nj1 19:22 Pain 7/10; nj1 19:23 Pain 7/10; nj1 20:06 BP 118 / 84; Pulse 68; Resp 18; Pulse Ox 98% on R/A; kl 15:59 Body Mass Index 28.33 (68.95 kg, 156 cm) mb9 16:45 Pain Scale: Adult nj1 17:20 Pain Scale: Adult nj1 18:30 Pain Scale: Adult nj1 19:22 Pain Scale: Adult nj1 19:23 Pain Scale: Adult nj1 ED Course: 15:50 Patient arrived in ED. im 15:51 Sudarshan Zafar MD is Attending Physician. ec2 15:56 Alicia Hansen RN is Primary Nurse. nj1 15:59 Arm band placed on. mb9 16:00 Triage completed. mb9 16:10 Inserted saline lock: 20 gauge in right antecubital area, using aseptic technique. nj1 Blood collected. 16:48 Patient has correct armband on for positive identification. Bed in low position. Call [facility] light in reach. Provided Education on: call light, fall precautions. 17:55 CT Abd/Pelvis - Without Contrast In Process Unspecified. EDMS 18:42 called [facility]' transfer talked to Alyson. sp 19:52 admin approval \\T\\ 1949 by Mariposa Vaca RN going to [facility] bed # [id number] Dr[address] Dayami Torres accpted pt [id number]. 20:05 called [facility] for transfer. talked to Jackie. sp 20:05 No provider procedures requiring assistance completed. Patient transferred, IV remains kl in place. Administered Medications: 16:10 Drug: NS 0.9% IV 1000 ml IV at 1 bolus Per protocol; 1000 mL bolus Route: IV; Rate: 1 nj1 bolus; Site: right antecubital; 16:10 Drug: Ondansetron IVP 4 mg IVP once; over 2 minutes Route: IVP; Site: right antecubital;nj1 16:45 Follow up: Response: No adverse reaction; Nausea unchanged nj1 16:42 Drug: metoCLOPramide IVP 10 mg IVP once; over 1 to 2 minutes Route: IVP; Site: right nj1 antecubital; 17:10 Follow up: Response: No adverse reaction; Nausea is decreased nj1 16:44 Drug: Ketorolac IVP 15 mg IVP once Route: IVP; Site: right antecubital; nj1 17:10 Follow up: Response: No adverse reaction; Pain is unchanged, physician notified nj1 17:00 Drug: morphine IVP or IV 2 mg IVP once over 4 mins Route: IVP; Infused Over: 4 mins; nj1 Site: right antecubital; 17:20 Follow up: Pain 7/10 Adult; Response: No adverse reaction; Pain is decreased nj1 18:30 Drug: morphine IVP or IV 4 mg IVP once over 4 mins Route: IVP; Infused Over: 4 mins; nj1 Site: right antecubital; 19:23 Follow up: Pain 7/10 Adult; Response: No adverse reaction; Pain is decreased nj1 18:30 Drug: Ketorolac IVP 15 mg IVP once Route: IVP; Site: right antecubital; nj1 19:22 Follow up: Pain 7/10 Adult; Response: No adverse reaction; Pain is decreased [facility] 18:49 Drug: NS 0.9% IV 1000 ml IV at 1 bolus Per protocol; 1000 mL bolus Route: IV; Rate: 1 hb bolus; Site: right antecubital; Medication: 16:48 VIS not applicable for this client. nj1 Outcome: 18:49 ER care complete, transfer ordered by . ec2 20:06 Transferred by ground EMS to [facility] 20:06 Condition: improved 20:06 Discharge instructions given to patient, Instructed on the need for transfer, Demonstrated understanding of instructions, 20:31 Patient left the ED. Signatures: Dispatcher [employer] Yesy Anders RN RN Shyanne Patiño Heather, RN RN Opal Pete RN RN mb9 Alicia Hansen RN RN nj1 Mariajose Horton Edwin, MD MD ec2 Corrections: (The following items were deleted from the chart) 16:01 15:59 Chief complaint: Patient states: "I started having low back pain yesterday. Now mb9 I'm N/V and lightheaded." Pt denies stomach pain mb9
[2023-09-16 20:49] VITALS: TEMP 97.3
[2023-09-16 21:00] VITALS: BP 118/84; O2SAT 98
== END 2023-09-16 20:31 | disposition short-term general hospital (02) ==
LOC: ER 15:47
DX: N20.1 Calculus of ureter (principal)
CPT/HCPCS: 36415; 74176; 80048; 84703; 85025; 96374; 96375; 99285; J2270; J2405; J2765; J7030